=== PATIENT | female | born 1990 | race Caucasian/White ===

== ENCOUNTER 2016-09-30 22:42 | Emergency (ER) | payer OTHER ==
--- NOTE | 2016-09-30 22:56 | Emergency Department Record ---
History of Present Illness - General Stated complaint: HEAVY BLEEDING Time Seen by Provider: 09/30/16 22:52 Source: Patient Mode of Arrival: Ambulatory Limitations: No limitations - History of Present Illness Initial comments: 26 yo female presents to ED with a CC of "heavy menstrual bleeding" for the past 3 days. Patient reports heavier menses following tubal ligation 3 years ago, and the patient reports that her PCP is scheduling an outpatient US of the uterus for further evaluation. Patient does report feeling somewhat dizzy and weak for the past 2-3 days. Patient denies blood thinner medications or health problems at her baseline. MD Complaint: Vaginal bleeding Onset/Timin -: Days(s) Severity: Moderate Quality: Cramping Consistency: Constant Improves with: None Worsens with: None Patient : No Associated Symptoms: Weakness - Related Data Home Medications Medication Instructions Recorded Confirmed Last Taken Cholecalciferol (Vitamin D3) 50,000 unit PO WEEKLY 09/30/16 09/30/16 09/27/16 [Vitamin D] Allergies Allergy/AdvReac Type Severity Reaction Status Date / Time Sulfa (Sulfonamide Allergy HIVES Verified 09/30/16 23:04 Antibiotics) Review of Systems Constitutional: Reports: Weakness. Denies: Chills, Fever, Malaise, Night sweats Eyes: Denies: Eye discharge, Eye pain ENT: Denies: Congestion, Ear pain, Epistaxis Respiratory: Denies: Cough, Dyspnea Cardiovascular: Denies: Chest pain, Dyspnea on exertion Endocrine: Denies: Fatigue, Heat or cold intolerance Gastrointestinal: Denies: Abdominal pain, Nausea, Vomiting Genitourinary: Reports: Abnormal menses (heavier). Denies: Incontinence, Retention Musculoskeletal: Denies: Arthralgia, Back pain, Gout Skin: Denies: Bruising, Change in color Neurological: Denies: Abnormal gait, Confusion, Headache, Seizure Psychiatric: Denies: Anxiety Hematological/Lymphatic: Denies: Anemia, Blood Clots Physical Exam - General General Appearance: Alert, Oriented x3, Cooperative, No acute distress Limitations: No limitations - Head Head exam: Atraumatic, Normocephalic, Normal inspection Head exam detail: negative: Abrasion, Contusion, Palmer's sign, General tenderness, Hematoma, Laceration - Eye Eye exam: Normal appearance. negative: Conjunctival injection, Periorbital swelling, Periorbital tenderness, Scleral icterus - ENT Ear exam: negative: Auricular hematoma, Auricular trauma Nasal Exam: negative: Active bleeding, Discharge, Dried blood, Foreign body Mouth exam: negative: Drooling, Laceration, Muffled voice, Tongue elevation - Neck Neck exam: Normal inspection. negative: Meningismus, Tenderness - Respiratory Respiratory exam: Normal lung sounds bilaterally. negative: Rales, Respiratory distress, Rhonchi, Stridor - Cardiovascular Cardiovascular Exam: Regular rate, Normal rhythm, Normal heart sounds - GI/Abdominal GI/Abdominal exam: Soft. negative: Rebound, Rigid, Tenderness - Rectal Rectal exam: Deferred - exam: Deferred - Extremities Extremities exam: Normal inspection. negative: Calf tenderness, Pedal edema, Tenderness - Back Back exam: Denies: CVA tenderness (R), CVA tenderness (L) - Neurological Neurological exam: Alert, Normal gait, Oriented X3 - Psychiatric Psychiatric exam: Normal affect, Normal mood - Skin Skin exam: Normal color. negative: Abrasion Type of lesion: negative: abrasion Course Vital Signs 09/30/16 22:48 Temperature 98.9 F Pulse Rate [ 70 Pulse Ox Probe] Respiratory 16 Rate Blood Pressure 120/80 [Left Arm] Pulse Ox 98 - Reevaluation(s) Reevaluation #1: 09/30/16 23:10 Labs reviewed, Hgb 10.6/HCT 31.9. Hgb appears stable, VSS, and the patient appears stable for discharge with outpatient follow-up in 3-5 days with her PCP who is currently evaluating the patient for her dysfunctional uterine bleeding. Medical Decision Making - Lab Data Result diagrams: 09/30/16 22:55 Disposition Disposition: Discharge Clinical Impression: DUB (dysfunctional uterine bleeding) Disposition: Home, Self-Care Condition: (2) Stable Instructions: Dysfunctional Uterine Bleeding (ED) Additional Instructions: Return to ED if your symptoms worsen or if you have any concerns. Follow-up with your family doctor in 3-5 days as directed for further evaluation. Forms: Patient Portal Access Time of Disposition: 23:11 Quality - Quality Measures Quality Measures: N/A - Blood Pressure Screening Blood Pressure Classification: Pre-Hypertensive BP Reading Systolic Measurement: 120 Diastolic Measurement: 80 Screening for High Blood Pressure: < Pre-Hypertensive BP, F/U Documented > [ [id number]] Pre-Hypertensive Follow-up Interventions: Referral to alternative/primary care provider.
[2016-09-30 23:03] LABS: BASO % 1.3 % (0-6); EOS % 3.5 % (0-6); HEMATOCRIT 31.9 % (35.0-47.0); HEMOGLOBIN 10.6 gm/dl (11.6-16.0); MEAN CELL VOLUME 81.2 fl (81-97); MEAN CORPUSCULAR HEMOGLOBIN 26.9 pg (27-33); MEAN CORPUSCULAR HGB CONC 33.2 g/dl (32-36); MONO % 13.2 % (0-9); PLATELET COUNT 198 K/uL (130-400); RED BLOOD COUNT 3.93 M/uL (3.80-5.40); RED CELL DISTRIBUTION WIDTH 14.8 % (11.5-14.5); WHITE BLOOD COUNT W/O DIFF 3.7 K/uL (4.2-12.2)
== END 2016-09-30 23:23 | disposition home or self-care (01) ==
LOC: ER 22:42
DX: N93.8 Other specified abnormal uterine and vaginal bleeding (principal); R42 Dizziness and giddiness
CPT/HCPCS: 85025; 99283